=== PATIENT | female | born 1970 | race African-American/Black ===

== ENCOUNTER → 2016-05-23 | Outpatient (CLI) | payer OTHER, BC ==
[2014-12-16 23:41] VITALS: BP 159/72
[2016-05-23 08:24] LABS: CALCIUM 9.3 mg/dL (8.5-10.1); CREATININE 0.8 mg/dL (0.6-1.0); GFR 92.6; POTASSIUM 4.2 mmol/L (3.5-5.1)
[2016-05-23 08:43] LABS: CHOLESTEROL/HDL RATIO 2.2
== END | disposition home or self-care (01) ==
LOC: LAB 07:35
PROVIDERS: ATTEND Family Medicine
DX: E11.65 Type 2 diabetes mellitus with hyperglycemia (principal); E03.9 Hypothyroidism, unspecified; E78.2 Mixed hyperlipidemia; I10 Essential (primary) hypertension
CPT/HCPCS: 36415; 80048; 80061; 82550; 83036; 84443

== ENCOUNTER → 2016-10-13 | Outpatient (CLI) | payer OTHER, BC ==
[2014-12-16 23:41] VITALS: BP 159/72
--- NOTE | 2016-10-13 16:48 | RAD ---
Pelvic ultrasound, 10/13/2016: History: Menorrhagia, history of fibroids Transabdominal scans were obtained. The uterus measures 5.8 x 11.3 x 6.6 cm. The myometrial echo pattern is heterogeneous with several rounded mass is seen, compatible with uterine fibroids. The largest of these lies in the fundal region on the left and measures 3.9 cm. The central uterine echo complex is distorted and not clearly delineated. The ovaries are of normal size. No adnexal mass is seen. No free fluid is evident in the pelvis. IMPRESSION: Fibroid uterus
== END | disposition home or self-care (01) ==
LOC: US 13:01
PROVIDERS: ATTEND Family Medicine
DX: D25.9 Leiomyoma of uterus, unspecified (principal); N92.0 Excessive and frequent menstruation with regular cycle
CPT/HCPCS: 76856

== ENCOUNTER → 2016-10-15 | Outpatient (CLI) | payer OTHER, BC ==
[2014-12-16 23:41] VITALS: BP 159/72
--- NOTE | 2016-10-15 14:23 | RAD ---
DATE: 10/15/2016 EXAM: DIGITAL SCREEN BILAT W/CAD HISTORY: Routine screening COMPARISON: 09/04/2015 This study was interpreted with the benefit of Computerized Aided Detection (CAD). The breast parenchyma is heterogeneously dense, which could reduce sensitivity of mammography. Breast parenchyma level C. FINDINGS: No new or enlarging breast densities are seen. Benign type calcifications are again noted. No suspicious microcalcifications have developed. Benign-appearing lymph node type densities are again identified in the right axillary region. IMPRESSION: Stable mammograms without evidence of malignancy. BI-RADS CATEGORY: 2 BENIGN FINDING(S) RECOMMENDED FOLLOW-UP: 12M 12 MONTH FOLLOW-UP PQRS compliance statement: Patient information was entered into a reminder system with a target due date for the next mammogram. Mammography is a sensitive method for finding small breast cancers, but it does not detect them all and is not a substitute for careful clinical examination. A negative mammogram does not negate a clinically suspicious finding and should not result in delay in biopsying a clinically suspicious abnormality. "Our facility is accredited by the [employer] Mammography [employer]."
== END | disposition home or self-care (01) ==
LOC: MAMMO 13:27
PROVIDERS: ATTEND Family Medicine
DX: Z12.31 Encounter for screening mammogram for malignant neoplasm of breast (principal)
CPT/HCPCS: G0202; 77067

== ENCOUNTER → 2016-11-19 | Outpatient (CLI) | payer OTHER, BC ==
[2014-12-16 23:41] VITALS: BP 159/72
[2016-11-19 08:13] LABS: BASO % 1 % (0-3); EOS % 1 % (0-3); HEMOGLOBIN 12.6 g/dL (12.0-15.5); LYMPH # 1.8 x10^3/uL (1.0-4.8); LYMPH % 38 % (24-48); MEAN CORPUSCULAR HEMOGLOBIN 25 pg (25-35); MEAN CORPUSCULAR HGB CONC 31 g/dL (31-37); MEAN CORPUSCULAR VOLUME 80 fL (79-100); MONO % 8 % (0-9); NEUT % 52 % (31-73); PLATELET COUNT 288 x10^3/uL (140-400); RED BLOOD COUNT 5.01 x10^6/uL (3.50-5.40); WHITE BLOOD COUNT 4.6 x10^3/uL (4.0-11.0)
[2016-11-19 09:33] LABS: PLT ESTIMATE ADEQUATE (ADEQUATE)
[2016-11-19 09:34] LABS: POIKILOCYTOSIS PRESENT
== END | disposition home or self-care (01) ==
LOC: LAB 07:42
PROVIDERS: ATTEND Family Medicine
DX: D50.0 Iron deficiency anemia secondary to blood loss (chronic) (principal)
CPT/HCPCS: 36415; 85025

== ENCOUNTER → 2017-04-02 | Outpatient (CLI) | payer OTHER, BC ==
[2017-04-02 08:32] LABS: ALBUMIN 3.9 g/dL (3.4-5.0); ALBUMIN/GLOBULIN RATIO 1.1 (1.0-1.7); ALK PHOS 81 U/L (46-116); ALT (SGPT) 20 U/L (14-59); ANION GAP 9 (6-14); AST (SGOT) 16 U/L (15-37); BLOOD UREA NITROGEN 13 mg/dL (7-20); BUN/CREATININE RATIO 16 (6-20); CALCIUM 9.1 mg/dL (8.5-10.1); CARBON DIOXIDE 28 mmol/L (21-32); CHLORIDE 104 mmol/L (98-107); CHOLESTEROL 170 mg/dL (0-200); CREATININE 0.8 mg/dL (0.6-1.0); GFR 92.2; GLUCOSE 132 mg/dL (70-99); HDLC 66 mg/dL (40-60); NON-HDL CHOLESTEROL 104 mg/dL (0-129); POTASSIUM 4.2 mmol/L (3.5-5.1); SODIUM 141 mmol/L (136-145); TOTAL BILIRUBIN 0.4 mg/dL (0.2-1.0); TOTAL PROTEIN 7.4 g/dL (6.4-8.2); TRIGLYCERIDES 66 mg/dL (0-150)
[2017-04-02 08:34] LABS: CHOLESTEROL/HDL RATIO 2.6
== END | disposition home or self-care (01) ==
LOC: LAB 07:46
DX: E11.65 Type 2 diabetes mellitus with hyperglycemia (principal); I10 Essential (primary) hypertension
CPT/HCPCS: 36415; 80053; 80061; 83036; 84443

== ENCOUNTER → 2017-11-13 | Outpatient (CLI) | payer BC, OTHER ==
[2014-12-16 23:41] VITALS: BP 159/72
--- NOTE | 2017-11-17 15:38 | RAD ---
3d digital tomography Bilateral History: Routine screening Technique: Bilateral 3d digital tomographic views were obtained in the CC and MLO projection. In addition, CAD - computer aided detection was utilized. Comparison: 10/15/2016, 09/04/15 and 02/22/2014. Findings: Breast Tissue Density C : The breast tissue is heterogeneously dense. Scattered fibroglandular elements may obscure underlying pathology. There are no suspicious masses, microcalcifications or areas of architectural distortion. Impression: No suspicious findings. BI-RADS Category 1: Negative. Recommendation: In the absence of new clinical symptoms or change in physical exam, annual screening mammography is recommended. The patient will receive a letter with the results in the mail. Your mammogram demonstrates that you have dense breast tissue, which could hide abnormalities, and if you have other risk factors for breast cancer that have been identified, you might benefit from supplemental screening tests that may be suggested by your ordering physician. Dense breast tissue, in and of itself, is a relatively common condition. This information is not provided to cause undue concern, but rather to raise your awareness and to promote discussion with your physician regarding the presence of other risk factors, in addition to dense breast tissue. A report of your mammography results will be sent to you and your physician. You should contact your physician if you have any questions or concerns regarding this report. A mammogram does not have 100% sensitivity and therefore a negative imaging study should not delay further work up of a suspicious abnormality. Patient information is entered into the [facility] reminder system using [employer] with a target due date for the next screening mammogram. The patient will receive a reminder. "Our facility is accredited by the [employer] Mammography Program."
== END | disposition home or self-care (01) ==
LOC: MAMMO 14:45
PROVIDERS: ATTEND Family Medicine
DX: Z12.31 Encounter for screening mammogram for malignant neoplasm of breast (principal); E78.2 Mixed hyperlipidemia; I10 Essential (primary) hypertension; E11.9 Type 2 diabetes mellitus without complications; E03.9 Hypothyroidism, unspecified; Z86.2 Personal history of diseases of the blood and blood-forming organs and certain disorders involving the immune mechanism
CPT/HCPCS: 77063; 77067

== ENCOUNTER → 2019-01-08 | Outpatient (CLI) | payer BC, OTHER ==
[2014-12-16 23:41] VITALS: BP 159/72
--- NOTE | 2019-01-10 13:34 | RAD ---
DATE: 01/08/2019 EXAM: MAMMO ALBERTO SCREENING BILATERAL HISTORY: Asymptomatic screening mammogram COMPARISON: 11/13/2017, 10/15/2016, 09/04/2015 This study was interpreted with the benefit of Computerized Aided Detection (CAD). Breast Density: SCATTERED The breast parenchyma shows scattered fibroglandular densities. Breast parenchyma level B. FINDINGS: Bilateral CC and MLO views of the breasts were performed. Bilateral breast tomosynthesis was performed in CC and MLO projections. Right breast: There are no suspicious microcalcifications, masses or areas of architectural distortion. Left breast: There are no suspicious microcalcifications, masses or areas of architectural distortion. Findings are stable from prior mammogram. IMPRESSION: Negative bilateral mammogram BI-RADS CATEGORY: 1 NEGATIVE RECOMMENDED FOLLOW-UP: 12M 12 MONTH FOLLOW-UP PQRS compliance statement: Patient information was entered into a reminder system with a target due date 01/09/2020 for the next mammogram. Mammography is a sensitive method for finding small breast cancers, but it does not detect them all and is not a substitute for careful clinical examination. A negative mammogram does not negate a clinically suspicious finding and should not result in delay in biopsying a clinically suspicious abnormality. "Our facility is accredited by the [employer] Mammography Program."
== END | disposition home or self-care (01) ==
LOC: MAMMO 10:04
PROVIDERS: ATTEND Family Medicine
DX: Z12.31 Encounter for screening mammogram for malignant neoplasm of breast (principal); N64.89 Other specified disorders of breast
CPT/HCPCS: 77063; 77067

== ENCOUNTER → 2019-11-03 | Outpatient (CLI) | payer BC, OTHER ==
[2014-12-16 23:41] VITALS: BP 159/72
[2019-11-03 08:51] LABS: BASO % 1 % (0-3); EOS # 0.1 x10^3/uL (0.0-0.7); EOS % 1 % (0-3); HEMATOCRIT 38.6 % (36.0-47.0); HEMOGLOBIN 12.7 g/dL (12.0-15.5); LYMPH # 1.3 x10^3/uL (1.0-4.8); LYMPH % 31 % (24-48); MEAN CORPUSCULAR HEMOGLOBIN 28 pg (25-35); MEAN CORPUSCULAR HGB CONC 33 g/dL (31-37); MEAN CORPUSCULAR VOLUME 87 fL (79-100); MONO # 0.3 x10^3/uL (0.0-1.1); MONO % 9 % (0-9); NEUT # 2.3 x10^3/uL (1.8-7.7); NEUT % 58 % (31-73); PLATELET COUNT 360 x10^3/uL (140-400); RED BLOOD COUNT 4.46 x10^6/uL (3.50-5.40); RED CELL DISTRIBUTION WIDTH 14.3 % (11.5-14.5)
[2019-11-03 09:46] LABS: FREE T4 1.19 ng/dL (0.76-1.46); THYROID STIM HORMONE (TSH) 1.002 uIU/mL (0.358-3.74)
== END | disposition home or self-care (01) ==
LOC: LAB 07:48
PROVIDERS: ATTEND Obstetrics & Gynecology
DX: D25.9 Leiomyoma of uterus, unspecified (principal); N93.9 Abnormal uterine and vaginal bleeding, unspecified; N92.0 Excessive and frequent menstruation with regular cycle
CPT/HCPCS: 83001; 84439; 84443; 85025

== ENCOUNTER → 2019-11-14 | Outpatient (CLI) | payer BC, OTHER ==
[2014-12-16 23:41] VITALS: BP 159/72
--- NOTE | 2019-11-14 07:29 | RAD ---
Examination: Ultrasound pelvis HISTORY: History of abnormal uterine bleeding COMPARISON: 10/13/2016 FINDINGS: The uterus measures 9.1 x 8.2 x 9.0 cm. The endometrium measures 5.6 mm in thickness. Multiple heterogeneous echogenicities identified in the uterus with the largest measuring 5.4 cm likely fibroids (prior 3.9 cm). The right ovary measures 2.5 x 2.1 x 2.1 cm. The left ovary measures 2.9 x 2.2 x 1.4 cm. There is blood flow identified in the right and left ovaries. IMPRESSION: 1. Multiple uterine fibroids. Electronically signed by: Damon Phelps MD (11/14/2019 7:26 AM) [id number]
== END | disposition home or self-care (01) ==
LOC: US 06:41
PROVIDERS: ATTEND Obstetrics & Gynecology
DX: D25.9 Leiomyoma of uterus, unspecified (principal); N92.0 Excessive and frequent menstruation with regular cycle; N93.9 Abnormal uterine and vaginal bleeding, unspecified
CPT/HCPCS: 76856

== ENCOUNTER → 2020-01-09 | Outpatient (CLI) | payer BC, OTHER ==
[2014-12-16 23:41] VITALS: BP 159/72
[~2020-01-09] MED LIST: ATOR10TA60 PO; EMPA25TA PO; FLUC150T2 PO; LEVO88TA4 PO; LOSA-73 PO; SITA1TAB11 PO
[2020-01-09 12:59] LABS: BASO % 1 % (0-3); EOS % 0 % (0-3); HEMATOCRIT 35.4 % (36.0-47.0); HEMOGLOBIN 11.5 g/dL (12.0-15.5); LYMPH # 1.9 x10^3/uL (1.0-4.8); LYMPH % 37 % (24-48); MEAN CORPUSCULAR HEMOGLOBIN 26 pg (25-35); MEAN CORPUSCULAR HGB CONC 32 g/dL (31-37); MEAN CORPUSCULAR VOLUME 79 fL (79-100); MONO # 0.3 x10^3/uL (0.0-1.1); MONO % 6 % (0-9); NEUT # 2.9 x10^3/uL (1.8-7.7); NEUT % 56 % (31-73); PLATELET COUNT 364 x10^3/uL (140-400); RED BLOOD COUNT 4.48 x10^6/uL (3.50-5.40); RED CELL DISTRIBUTION WIDTH 15.2 % (11.5-14.5); WHITE BLOOD COUNT 5.2 x10^3/uL (4.0-11.0)
== END ==
LOC: SURGPAT 12:09
PROVIDERS: ATTEND Obstetrics & Gynecology
DX: Z01.812 Encounter for preprocedural laboratory examination (principal); Z20.828 Contact with and (suspected) exposure to other viral communicable diseases
CPT/HCPCS: 85025; U0003

== ENCOUNTER 2020-01-12 06:58 | Observation (INO) | payer BC, OTHER ==
[~2020-01-12] VITALS: Ht 165.1 cm; Wt 59.0 kg
[2020-01-12] VITALS (9 sets, daily range): BP systolic 98–115; BP diastolic 55–67
[~2020-01-12 06:58] MED LIST changes: +ceFAZolin SODIUM IV Push 1 GM VIAL. IVP PRN
[2020-01-12] MEDS ORDERED: PROCHLORPERAZINE 10 MG/2 ML VIAL. IV PRN ×2 (07:00→10:15)
[2020-01-12] MEDS ORDERED: IV RINGERS,LACTATED 1000ML 1,000 ML IV SCH (07:00)
[2020-01-12] MEDS ORDERED: ONDANSETRON PF 4 MG/2 ML VIAL. IV PRN ×2 (07:00→10:15)
[2020-01-12] MEDS ORDERED: MORPHINE SULFATE 2 MG/ML VIAL. IV PRN (07:00)
[2020-01-12] MEDS ORDERED: fentaNYL PF VIAL 100 MCG/2 ML VIAL IV PRN (07:00)
[2020-01-12] MEDS ORDERED: HYDROmorphone 2 MG/ML VIAL IV PRN (07:00)
[2020-01-12] MEDS ORDERED: ROCURONIUM 50 MG/5 ML VIAL. ONE (07:22)
[2020-01-12] MEDS ORDERED: LIDOCAINE 2% PF 5 ML VIAL. ONE (07:22)
[2020-01-12] MEDS ORDERED: PROPOFOL 10 MG/ML (20ML) VIAL. IV ONE (07:22)
[2020-01-12] MEDS ORDERED: INSULIN LISPRO 100 UNIT/ML 3ML VIAL for OP,RR ONLY. SQ PRN (07:30)
[2020-01-12] MEDS ORDERED: INSULIN LISPRO 100 UNIT/ML 3ML VIAL for OP,RR ONLY. SQ ONE (07:35)
[2020-01-12] MEDS ORDERED: SURGICEL HEMOSTAT 4X8 EACH. ONE (07:39)
[2020-01-12] MEDS ORDERED: INDIGOTINDISULFONATE SODIUM 40 MG/5 ML AMPUL. ONE (07:39)
[2020-01-12] MEDS ORDERED: LIDOCAINE 1%/EPI 1:100,000 20 ML VIAL. ONE (07:39)
[2020-01-12] MEDS ORDERED: ESTROGENS, CONJ VAGINAL CREAM 30GM TUBE. ONE (07:39)
[2020-01-12] MEDS ORDERED: BUPIVACAINE-EPI 0.25%-1:200000 MPF 30 ML VIAL. INJ ONE (07:45)
[2020-01-12] MEDS ORDERED: MIDAZOLAM HCL/PF 2 MG/2 ML VIAL. ONE (07:50)
[2020-01-12] MEDS ORDERED: fentaNYL PF VIAL 250 MCG/5 ML VIAL ONE (07:50)
[2020-01-12] MEDS ORDERED: KETOROLAC 30 MG/ML VIAL. ONE (07:51)
[2020-01-12] MEDS ORDERED: DEXAMETHASONE SOD PHOS 4 MG/ML VIAL ONE (07:51)
[2020-01-12] MEDS ORDERED: ONDANSETRON PF 4 MG/2 ML VIAL. ONE (07:51)
[2020-01-12] MEDS ORDERED: PHENYLEPHRINE in 0.9% NACL PF 1 MG/10 ML SYRINGE. IV ONE (08:23)
[2020-01-12] MEDS ORDERED: GLYCOPYRROLATE 1 MG/5 ML VIAL. ONE (08:37)
[2020-01-12] MEDS ORDERED: ePHEDrine PF IN SALINE 50 MG/10 ML SYRINGE. IV ONE (08:38)
[2020-01-12] MEDS ORDERED: NEOSTIGMINE METHYLSULFATE 5 MG/5 ML SYRINGE. ONE (09:54)
--- NOTE | 2020-01-12 10:11 | PDOC ---
BRIEF OPERATIVE NOTE Date: Jan 12, 2020 Pre-Op Diagnosis 1. Fibroids 2. Menorrhagia 3. Dyspareunia Post-Op Diagnosis same + ROV cyst Procedure Performed LAVH and BSO Surgeon Dr. Carcamo Binding Stitcher Remote Recruiter: Efren Anesthesia Type: General Blood Loss 50 ml Specimens Obtained cervix, uterus, vincenzo. fallopian tubes and ovaries Findings enlarged, fibroid uterus, ROV cyst 3 cm, nml falopian tubes vincenzo., nml JAVAD, abd wall adhesions Complications none Operative Note see dictation URIEL CARCAMO Jr, MD Jan 12, 2020 10:11
[2020-01-12] MEDS ORDERED: DEXTROSE 50% 25 GM / 50ML DISP.SYRIN. IV PRN (10:15)
[2020-01-12] MEDS ORDERED: diphenhydrAMINE HCL 25 MG CAPSULE PO PRN (10:15)
[2020-01-12] MEDS ORDERED: diphenhydrAMINE 50 MG/ML VIAL IV PRN (10:15)
[2020-01-12] MEDS ORDERED: OPIUM/BELLADONNA 30/16.2MG SUPP.RECT. PR PRN (10:15)
[2020-01-12] MEDS ORDERED: 0.9 % SODIUM CHLORIDE 10 ML DISP.SYRIN. IV PRN (10:15)
[2020-01-12] MEDS ORDERED: CALCIUM CARBONATE 500 MG TAB.CHEW PO PRN (10:15)
[2020-01-12] MEDS ORDERED: ZOLPIDEM 5 MG TABLET. PO PRN (10:15)
[2020-01-12] MEDS ORDERED: fentaNYL PF VIAL 100 MCG/2 ML VIAL ONE (10:45)
[2020-01-12] MEDS: fentaNYL PF VIAL 100 MCG/2 ML VIAL IV PRN ×2 (10:47→11:20)
--- NOTE | 2020-01-12 11:17 | OP ---
DATE OF SURGERY: 01/12/2020 PREOPERATIVE DIAGNOSES: 1. Fibroids. 2. Menorrhagia. 3. Dyspareunia. POSTOPERATIVE DIAGNOSES: 1. Fibroids. 2. Menorrhagia. 3. Dyspareunia. 4. Right ovarian cyst. PROCEDURE: LAVH, BSO. SURGEON: Uriel Carcamo MD TOWER TRUCK DRIVER: Efren. ANESTHESIA: GETA. ESTIMATED BLOOD LOSS: 50 mL. COMPLICATIONS: None. FINDINGS: Enlarged fibroid uterus, right ovarian cyst, 3 cm size. Normal fallopian tubes bilaterally. Normal left ovary. Abdominal wall adhesions. SUMMARY: A 49-year-old with long history of fibroid uterus, menorrhagia and dyspareunia, counseled on need for hysterectomy. She was counseled on the risks, benefits and expectations of LAVH and BSO and voiced clear understanding to proceed. DESCRIPTION OF PROCEDURE: The patient was taken to surgery suite and placed in dorsal lithotomy position. She was prepped with Betadine solution for vaginal prep and ChloraPrep for abdominal prep. After adequate anesthesia, bivalve speculum was placed vaginally. Anterior lip of the cervix grasped with single tooth tenaculum. [employer] uterine manipulator was then placed. The bivalve speculum was removed. Attention was now placed on abdomen. Small transverse skin incision was made in the left upper quadrant with a scalpel. Veress needle was then placed through the left upper quadrant incision. The abdomen was allowed to insufflate up to 1-1/2 liters CO2 gas. The Veress needle was then removed, 5 mm trocar was placed. Camera was placed. There were multiple abdominal wall adhesions. The uterus was enlarged with multiple fibroids. Fallopian tubes appeared normal bilaterally. Left ovary appeared normal. Right ovary demonstrated a 3 cm size cyst. An incision was made in the left lower quadrant with a scalpel and 5 mm trocar was placed. With the aid of the EnSeal device, the abdominal wall adhesions were dissected for better visibility. The third incision was made just below the umbilicus with a scalpel in which a 5 mm trocar was placed. With aid of graspers and EnSeal device, the right round ligament was coagulated and dissected. The right infundibulopelvic ligament was coagulated and dissected. The right broad ligament was coagulated and dissected down to the uterine artery. Same process took place with left adnexa. Bladder flap was created using EnSeal device and suction ferry operator for hydrodissection. A small amount of normal saline was left in posterior cul-de-sac. Weighted speculum and curved Gary placed vaginally. The Valtchev uterine manipulator and single tooth tenaculum were removed. Lucia clamps were placed on the anterior and posterior lip of the cervix. The cervix was injected with 1% lidocaine with epinephrine in circumferential manner. Bovie cautery was utilized to circumscribe the cervix. The vaginal mucosa was dissected away from the lower uterine segment using moist Ray-Safia. The cardinal ligaments were clamped bilaterally, cut, and suture ligated. The uterosacral ligaments were clamped bilaterally, cut, and suture ligated. We entered the posterior cul-de-sac bluntly. Anterior cul-de-sac was entered bluntly as well. The uterus was then bivalved and fibroid was also enucleated and then the remainder of the uterus, left fallopian tube and ovary were removed. A modified Reveles's culdoplasty was performed incorporating uterosacral ligaments bilaterally. Remainder of the vaginal cuff was reapproximated using 2-0 Vicryl suture in [id number] manner. Permanent soaked vaginal packing was placed. Attention was now again placed on abdomen. The abdomen was insufflated up to 1-1/2 liters CO2 gas. Scope was positioned. The pedicles were all hemostatic. Posterior vaginal cuff was hemostatic. The right ovary that contained the ovarian cyst was then visualized. Therefore, the infraumbilical incision site was utilized with a 10 mm port. An Endobag was placed to remove the right ovary and right ovarian cyst. Suction irrigation was utilized once again. A small amount of normal saline was left in posterior cul-de-sac. Trocars were then removed under direct visualization. The abdomen was allowed to deflate as much as possible along with mechanical manipulation. The infraumbilical incision site was closed at the fascial layer using 2-0 Vicryl suture in [id number] manner. The three skin incisions were closed at the skin level using 4-0 Vicryl suture in subcuticular manner. A 0.25% Marcaine with epinephrine was injected at each incision site. The patient tolerated the procedure well and was taken to recovery room in stable condition. Sponge and needle count correct x 3. URIEL CARCAMO MD DR: DIRK/gabo JOB#: [id number] / [id number]
[2020-01-12] MEDS: KETOROLAC 30 MG/ML VIAL. IV PRN ×2 (14:04→19:52)
[2020-01-12] MEDS: SIMETHICONE 80 MG TAB.CHEW PO PRN (16:23)
[2020-01-12] MEDS: GABAPENTIN 300 MG CAPSULE. PO SCH ×2 (16:23→23:46)
[2020-01-12] MEDS ORDERED: FLU VACC QS 2020-21(6MOS+)/PF 0.5 ML SYRINGE. VAX IM ONE (17:15)
[2020-01-12] MEDS: oxyCODONE/APAP 5/325 1 TAB TABLET PO PRN ×2 (17:43→23:55)
[2020-01-13 00:13] VITALS: BP 110/60
[2020-01-13 04:05] VITALS: BP 95/50
[2020-01-13 06:58] LABS: BASO % 0 % (0-3); EOS % 0 % (0-3); HEMATOCRIT 31.6 % (36.0-47.0); LYMPH # 1.8 x10^3/uL (1.0-4.8); LYMPH % 20 % (24-48); MEAN CORPUSCULAR HEMOGLOBIN 25 pg (25-35); MEAN CORPUSCULAR HGB CONC 32 g/dL (31-37); MEAN CORPUSCULAR VOLUME 80 fL (79-100); MONO # 0.6 x10^3/uL (0.0-1.1); MONO % 7 % (0-9); NEUT # 6.4 x10^3/uL (1.8-7.7); NEUT % 73 % (31-73); PLATELET COUNT 314 x10^3/uL (140-400); RED BLOOD COUNT 3.96 x10^6/uL (3.50-5.40); RED CELL DISTRIBUTION WIDTH 15.5 % (11.5-14.5); WHITE BLOOD COUNT 8.8 x10^3/uL (4.0-11.0)
[2020-01-13] MEDS: SIMETHICONE 80 MG TAB.CHEW PO PRN (07:48)
[2020-01-13] MEDS: GABAPENTIN 300 MG CAPSULE. PO SCH ×2 (07:49→16:22)
[2020-01-13 10:32] VITALS: BP 104/56
[2020-01-13] MEDS: KETOROLAC 30 MG/ML VIAL. IV PRN (13:21)
--- NOTE | 2020-01-13 16:30 | PDOC ---
SURGICAL PROGRESS NOTE DATE: 01/13/20 TIME: 16:28 Subjective Pt. feeling well. Pain controlled. Pt. tolerating PO, ambulating and voiding without difficulty. Vital Signs Vital Signs Date Time Temp Pulse Resp B/P (MAP) Pulse Ox O2 Delivery O2 Flow Rate FiO2 01/13/20 10:32 98.2 82 18 104/56 (72) 96 Room Air 98.2 01/12/20 19:40 6.0 I&O Intake and Output 01/13/20 07:00 Intake Total 1200 ml Output Total 4500 ml Balance -3300 ml Intake IV Total 1200 ml Output Urine Total 4450 ml Estimated Blood Loss 50 ml PATIENT HAS A CORDERO: No General: Alert, Oriented X3, Cooperative HEENT: Atraumatic Lungs: Clear to auscultation Heart: Regular rate Abdomen: Normal bowel sounds, Soft, No tenderness, No masses Psych/Mental Status: Mental status NL Labs Laboratory Tests Test 01/12/20 07:22 01/12/20 07:27 01/12/20 09:06 01/12/20 10:24 Bedside Urine HCG, Qualitative Hcg negative (Negative) Glucose (Fingerstick) 167 mg/dL (70-99) 148 mg/dL (70-99) 132 mg/dL (70-99) Test 01/13/20 06:05 White Blood Count 8.8 x10^3/uL (4.0-11.0) Red Blood Count 3.96 x10^6/uL (3.50-5.40) Hemoglobin 10.0 g/dL (12.0-15.5) Hematocrit 31.6 % (36.0-47.0) Mean Corpuscular Volume 80 fL (79-100) Mean Corpuscular Hemoglobin 25 pg (25-35) Mean Corpuscular Hemoglobin Concent 32 g/dL (31-37) Red Cell Distribution Width 15.5 % (11.5-14.5) Platelet Count 314 x10^3/uL (140-400) Neutrophils (%) (Auto) 73 % (31-73) Lymphocytes (%) (Auto) 20 % (24-48) Monocytes (%) (Auto) 7 % (0-9) Eosinophils (%) (Auto) 0 % (0-3) Basophils (%) (Auto) 0 % (0-3) Neutrophils # (Auto) 6.4 x10^3/uL (1.8-7.7) Lymphocytes # (Auto) 1.8 x10^3/uL (1.0-4.8) Monocytes # (Auto) 0.6 x10^3/uL (0.0-1.1) Eosinophils # (Auto) 0.0 x10^3/uL (0.0-0.7) Basophils # (Auto) 0.0 x10^3/uL (0.0-0.2) Laboratory Tests Test 01/13/20 06:05 White Blood Count 8.8 x10^3/uL (4.0-11.0) Red Blood Count 3.96 x10^6/uL (3.50-5.40) Hemoglobin 10.0 g/dL (12.0-15.5) Hematocrit 31.6 % (36.0-47.0) Mean Corpuscular Volume 80 fL (79-100) Mean Corpuscular Hemoglobin 25 pg (25-35) Mean Corpuscular Hemoglobin Concent 32 g/dL (31-37) Red Cell Distribution Width 15.5 % (11.5-14.5) Platelet Count 314 x10^3/uL (140-400) Neutrophils (%) (Auto) 73 % (31-73) Lymphocytes (%) (Auto) 20 % (24-48) Monocytes (%) (Auto) 7 % (0-9) Eosinophils (%) (Auto) 0 % (0-3) Basophils (%) (Auto) 0 % (0-3) Neutrophils # (Auto) 6.4 x10^3/uL (1.8-7.7) Lymphocytes # (Auto) 1.8 x10^3/uL (1.0-4.8) Monocytes # (Auto) 0.6 x10^3/uL (0.0-1.1) Eosinophils # (Auto) 0.0 x10^3/uL (0.0-0.7) Basophils # (Auto) 0.0 x10^3/uL (0.0-0.2) Assessment/Plan A: POD#1 s/p LAVH & BSO P: D/c home. Justicifation of Admission Dx: Justifications for Admission: Justification of Admission Dx: Yes URIEL RAPP Jr, MD Jan 13, 2020 16:30
[2020-01-13] MEDS ORDERED: OXYC1TAB15 PO (16:32)
[2020-01-13] MEDS ORDERED: DOCU-109 PO (16:32)
[2020-01-13] MEDS ORDERED: IBUP-1060 PO (16:32)
--- NOTE | 2020-01-13 16:33 | DISCH ---
DISCHARGE INSTRUCTIONS Condition on Discharge Condition on Discharge: Stable Activity After Discharge Activity Instructions for Disc: Activity as tolerated Lifting Instructions after Dis: No heavy lifting Driving Instructions after Dis: No driving for 2 weeks Diet after Discharge Diet after Discharge: Regular Contacting the DRGreg after DC Call your doctor for: Concerns you may have Follow-Up Follow up with: Dr. Carcamo in 2 wks URIEL CARCAMO Jr, MD Jan 13, 2020 16:33
[2020-01-13 16:45] VITALS: BP 104/63
--- NOTE | 2020-01-13 16:45 | NUR ---
Discharge instructions given to patient. Pt verbalized understanding. Pt discharged home.
== END 2020-01-13 17:08 | disposition home or self-care (01) ==
LOC: SURG 06:58 → 3 NORTH 10:00
PROVIDERS: ADMIT Obstetrics & Gynecology; ATTEND Obstetrics & Gynecology
DX: D25.9 Leiomyoma of uterus, unspecified (principal); N92.0 Excessive and frequent menstruation with regular cycle; N94.10 Unspecified dyspareunia; N83.201 Unspecified ovarian cyst, right side; Z79.899 Other long term (current) drug therapy; Z23 Encounter for immunization
CPT/HCPCS: 36415; 58554; 81025; 82962; 85025; 86850; 86900; 86901; 88307; 90471; 90686; 96374; 96375; 96376; A7015; G0378; G0379; J0690; J0780; J1100; J1815; J1885; J2250; J2370; J2405; J2704; J2710; J3010; J3490; J7030; J7120

== ENCOUNTER → 2020-02-14 | Outpatient (CLI) | payer BC, OTHER ==
[~2020-02-14] MED LIST changes: +DOCU-109 PO; +IBUP-1060 PO; +OXYC1TAB15 PO; -ceFAZolin SODIUM IV Push 1 GM VIAL. IVP PRN
== END ==
LOC: LAB 09:44
PROVIDERS: ATTEND Internal Medicine Pulmonary Disease
DX: U07.1 COVID-19 (principal)
CPT/HCPCS: U0003

== ENCOUNTER 2020-10-17 14:12 | Emergency (ER) | payer BC, OTHER ==
[2020-10-17] MEDS ORDERED: IV NORMAL SALINE 1000ML BAG 1,000 ML IV SCH (17:30)
== END 2020-10-17 17:00 | disposition left against medical advice (07) ==
LOC: ER 14:12
DX: R10.9 Unspecified abdominal pain (principal); Z53.21 Procedure and treatment not carried out due to patient leaving prior to being seen by health care provider

== ENCOUNTER → 2020-11-13 | Outpatient (CLI) | payer BC, OTHER ==
--- NOTE | 2020-11-13 08:11 | RAD ---
EXAM: ABDOMINAL ULTRASOUND. HISTORY: Abdominal pain. COMPARISON: None. FINDINGS: Sonographic evaluation of the abdomen was performed. The liver appears normal in parenchymal echotexture. There are no focal lesions. The spleen measures 8.1 cm. The gallbladder is unremarkable without evidence of stones, wall thickening or pericholecystic fluid. There is no sonographic Bonilla sign. The common duct measures 4 mm. The visualized portions of the h ead and body of the pancreas reveal no abnormality. The right kidney measures 12.2 cm. Cortical thickness and echogenicity are preserved. There is no hyd ronephrosis. The left kidney measures at least 9.4 cm. Cortical thickness and echogenicity are preser milli. There is no hydronephrosis. The visualized portions of the abdominal aorta and inferior vena cava are grossly patent and normal i n caliber. IMPRESSION: 1. No cause for pain is identified sonographically. Electronically signed by: Cynthia Pineda MD (11/13/2020 8:08 AM) [id number]
== END ==
LOC: US 06:36
PROVIDERS: ATTEND Family Medicine
DX: R10.84 Generalized abdominal pain (principal)
CPT/HCPCS: 76700